=== PATIENT | female | born 1990 | race Caucasian/White ===

== ENCOUNTER 2017-02-08 15:57 | Observation (INO) | payer OTHER ==
[~2017-02-08] VITALS: Ht 162.6 cm; Wt 114.3 kg
[~2017-02-08 15:57] MED LIST: PREN1TAB58 PO
[2017-02-08 16:48] LABS: NEG OBC AMNIO NEG; POS OBC AMNIO POS
[2017-02-08 17:03] LABS: BILIRUBIN,URINE NEGATIVE (NEG); GLUCOSE,URINE NEGATIVE (NEG); NITRITE,URINE NEGATIVE (NEG); PROTEIN,URINE NEGATIVE (NEG-TRACE); UROBILINOGEN,URINE 0.2 mg/dL (0.2 mg/dL)
[2017-02-08 17:10] LABS: BARBITURATES NEG (NEG); BENZODIAZEPINES NEG (NEG); CANNABINOIDS POS (NEG); COCAINE NEG (NEG); METHADONE NEG (NEG); OPIATES NEG (NEG); PHENCYCLIDINE NEG (NEG)
[2017-02-08 17:18] LABS: BACTERIA,URINE MODERATE /HPF (0-FEW); SQUAMOUS EPITHELIAL CELL,UR MOD /LPF; WBC,URINE OCC /HPF (0-4)
[2017-02-08] MEDS ORDERED: IV RINGERS,LACTATED 1000ML 1,000 ML IV ONE (18:15)
[2017-02-08] MEDS ORDERED: hydrOXYzine PAMOATE 25 MG CAPSULE PO ONE (18:15)
[2017-02-08] MEDS ORDERED: PNV1TABL25 PO (18:33)
[2017-02-08 21:30] VITALS: BP 147/72
== END 2017-02-09 00:09 | disposition home or self-care (01) ==
LOC: 3 SO LND 15:57
PROVIDERS: ADMIT Specialist; ATTEND Specialist
DX: O42.92 Full-term premature rupture of membranes, unspecified as to length of time between rupture and onset of labor (principal); O26.893 Other specified pregnancy related conditions, third trimester; R10.2 Pelvic and perineal pain; Z3A.37 37 weeks gestation of pregnancy
CPT/HCPCS: 36415; 81001; 84112; 87086; 96360; 96361; G0378; G0379; G0481; Q0177; J7120

== ENCOUNTER 2017-02-12 13:26 | Observation (INO) | payer OTHER ==
[~2017-02-12 13:26] MED LIST changes: +PNV1TABL25 PO
[2017-02-12] MEDS ORDERED: IV RINGERS,LACTATED 1000ML 1,000 ML IV SCH (14:01)
[2017-02-12] MEDS ORDERED: ACETAMINOPHEN 325 MG TABLET. PO PRN (14:15)
[2017-02-12 14:17] LABS: NEG OBC AMNIO NEG; POS OBC AMNIO POS
[2017-02-12 14:24] LABS: BILIRUBIN,URINE NEGATIVE (NEG); GLUCOSE,URINE NEGATIVE (NEG); NITRITE,URINE NEGATIVE (NEG); PH,URINE 6.5; PROTEIN,URINE 30 mg/dL (NEG-TRACE); UROBILINOGEN,URINE 0.2 mg/dL (0.2 mg/dL)
[2017-02-12 14:30] LABS: BARBITURATES NEG (NEG); BENZODIAZEPINES NEG (NEG); CANNABINOIDS NEG (NEG); COCAINE NEG (NEG); METHADONE NEG (NEG); OPIATES NEG (NEG); PHENCYCLIDINE NEG (NEG)
[2017-02-12 14:41] LABS: BACTERIA,URINE MANY /HPF (0-FEW); SQUAMOUS EPITHELIAL CELL,UR MOD /LPF
== END 2017-02-12 16:00 | disposition home or self-care (01) ==
LOC: 3 SO LND 13:26
PROVIDERS: ADMIT Obstetrics & Gynecology; ATTEND Obstetrics & Gynecology
DX: O62.9 Abnormality of forces of labor, unspecified (principal); Z3A.38 38 weeks gestation of pregnancy
CPT/HCPCS: 36415; 81001; 84112; 87086; G0378; G0379; G0481

== ENCOUNTER 2017-02-18 07:54 | Inpatient (IN) | payer OTHER ==
[~2017-02-18] VITALS: Ht 162.6 cm; Wt 116.1 kg
[2017-02-18] MEDS ORDERED: fentaNYL PF VIAL 100 MCG/2 ML VIAL IV PRN (08:45)
[2017-02-18] MEDS ORDERED: 0.9 % SODIUM CHLORIDE 10 ML DISP.SYRIN. IV PRN ×2 (08:45→20:30)
[2017-02-18] MEDS ORDERED: OXYTOCIN 30 UNIT/500 ML PREMIX 500 ML IV PRN ×3 (08:45→20:30)
[2017-02-18] MEDS ORDERED: LIDOCAINE 1% PF 30 ML VIAL. INJ PRN (08:45)
[2017-02-18] MEDS ORDERED: IBUPROFEN 600 MG TABLET. PO PRN (08:45)
[2017-02-18] MEDS ORDERED: BUTORPHANOL 2 MG/ML VIAL. IV PRN ×2 (08:45)
[2017-02-18] MEDS ORDERED: IBUPROFEN 800 MG TABLET. PO PRN (09:00)
[2017-02-18] MEDS ORDERED: AMPICILLIN SODIUM 2 GM in IV NORMAL SALINE 100ML 100 ML IV ONE (09:00)
[2017-02-18] MEDS: IV RINGERS,LACTATED 1000ML 1,000 ML IV PRN ×2 (09:22→12:59)
[2017-02-18 09:41] LABS: BASO # 0.1 x10^3/uL (0.0-0.2); BASO % 1 % (0-3); EOS % 2 % (0-3); HEMATOCRIT 33.5 % (36.0-47.0); HEMOGLOBIN 11.5 g/dL (12.0-15.5); LYMPH # 2.5 x10^3/uL (1.0-4.8); LYMPH % 20 % (24-48); MEAN CORPUSCULAR HEMOGLOBIN 29 pg (25-35); MEAN CORPUSCULAR HGB CONC 34 g/dL (31-37); MEAN CORPUSCULAR VOLUME 83 fL (79-100); MONO % 8 % (0-9); NEUT % 69 % (31-73); PLATELET COUNT 230 x10^3/uL (140-400); RED BLOOD COUNT 4.04 x10^6/uL (3.50-5.40); RED CELL DISTRIBUTION WIDTH 13.8 % (11.5-14.5); WHITE BLOOD COUNT 12.2 x10^3/uL (4.0-11.0)
[2017-02-18] MEDS ORDERED: L&D EPIDURAL CASSETTE 100 ML EP ONE (12:18)
[2017-02-18] MEDS ORDERED: ROPIVacaine 0.2% IN 0.9%NACL PF 40 MG/20 ML DISP.SYRIN. ONE ×2 (12:18→12:30)
[2017-02-18] MEDS ORDERED: L&D EPIDURAL CASSETTE 100 ML PUMP.RESVR. EP ONE (12:30)
[2017-02-18] MEDS ORDERED: OXYTOCIN in NORMAL SALINE PREMIX 30 UNIT/500 ML BAG. IV ONE (12:30)
[2017-02-18] MEDS ORDERED: ROPIVacaine 0.2% PF 10 ML VIAL. EPI ONE (13:15)
[2017-02-18] MEDS ORDERED: NALOXONE 0.4 MG/ML VIAL. IV PRN (13:15)
[2017-02-18] MEDS ORDERED: fentaNYL PF VIAL 100 MCG/2 ML VIAL EPI ONE (13:15)
[2017-02-18] MEDS ORDERED: L&D EPIDURAL CASSETTE 100 ML EP PRN (13:15)
[2017-02-18] MEDS ORDERED: ONDANSETRON PF 4 MG/2 ML VIAL. IV PRN (13:15)
[2017-02-18] MEDS ORDERED: ePHEDrine PF IN SALINE 50 MG/5 ML DISP.SYRIN IV PRN (13:15)
[2017-02-18] MEDS: AMPICILLIN SODIUM 1 GM in IV NORMAL SALINE 50ML 50 ML IV SCH ×3 (13:22→20:16)
[2017-02-18] MEDS ORDERED: PHENYLEPH/MINERAL OIL/PETROLAT RECTAL OINTMENT 28GM TUBE. RC PRN (20:30)
[2017-02-18] MEDS ORDERED: ZOLPIDEM 5 MG TABLET. PO PRN (20:30)
[2017-02-18] MEDS ORDERED: MAGNESIUM HYDROXIDE 2,400 MG/30 ML ORAL.SUSP. PO PRN (20:30)
[2017-02-18] MEDS ORDERED: HYDROCORTISONE 1% TOPICAL OINTMENT 30GM TUBE. TP PRN (20:30)
[2017-02-18] MEDS ORDERED: ACETAMINOPHEN 325 MG TABLET. PO PRN (20:30)
[2017-02-18] MEDS ORDERED: BENZOCAINE 20% TOPICAL AEROSOL SPRAY 57GM CAN. TP PRN (20:30)
[2017-02-18] MEDS ORDERED: diphenhydrAMINE HCL 25 MG CAPSULE PO PRN (20:30)
[2017-02-18] MEDS ORDERED: MAG HYDROX/ALUMINUM HYD/SIMETH 30 ML ORAL.SUSP PO PRN (20:30)
[2017-02-18] MEDS ORDERED: SIMETHICONE 80 MG TAB.CHEW PO PRN (20:30)
--- NOTE | 2017-02-18 20:41 | PDOC ---
VAGINAL DELIVERY DATE DATE: 02/18/17 TIME: 20:39 : 1 EDC: Feb 23, 2017 VAGINAL DELIVERY: VTX VACCUM ASSISTED: No PLACENTA: Spontaneous SEX: Male WEIGHT 8/2 Nuchal Cord: Yes, Times 1, Loose Amniotic Fluid: Clear PAIN: Epidural EPISIOTOMY: Yes EBL 400cc COMPLICATIONS None CONDITION Stable Signs of Intrauterine Infectio: None Shoulder Dystocia: No DIAGNOSIS TIUP del Problems: CARYL VILLAREAL MD Feb 18, 2017 20:41
[2017-02-18] MEDS: IBUPROFEN 800 MG TABLET. PO SCH (21:56)
[2017-02-18 23:05] VITALS: BP 130/77
[2017-02-18 23:50] VITALS: BP 132/72
[2017-02-19] MEDS: HYDROcodone/APAP 5/325MG 1 TAB TABLET PO PRN ×6 (02:46→22:25)
[2017-02-19 04:25] VITALS: BP 112/55
[2017-02-19 07:30] LABS: RPR REFLEX Non Reactive (Non Reactive)
--- NOTE | 2017-02-19 07:55 | PDOC ---
Provider Note Provider Note Doing well VSS uterus NTTP FU Vital Sign - Last 24 Hours 02/18/17 02/18/17 02/18/17 02/19/17 13:00 23:05 23:50 02:46 Temp 98.1 97.9 98.1 97.9 Pulse 105 97 Resp 20 20 20 18 B/P (MAP) 130/77 (94) 132/72 (92) Pulse Ox 96 95 O2 Delivery Room Air 02/19/17 04:25 Temp 97.7 97.7 Pulse 84 Resp 20 B/P (MAP) 112/55 (74) Pulse Ox 97 in AM CARYL VILLAREAL MD Feb 19, 2017 07:55
[2017-02-19] MEDS: IBUPROFEN 800 MG TABLET. PO SCH ×2 (08:20→17:49)
[2017-02-19] MEDS: FERROUS SULFATE 325 MG TABLET. PO SCH ×2 (08:20→17:48)
[2017-02-19 10:40] VITALS: BP 135/85
[2017-02-19 14:11] VITALS: BP 124/63
[2017-02-19 17:50] VITALS: BP 141/88
[2017-02-19 22:55] VITALS: BP 140/79
[2017-02-20] MEDS: HYDROcodone/APAP 5/325MG 1 TAB TABLET PO PRN ×3 (03:39→09:59)
[2017-02-20] MEDS: IBUPROFEN 800 MG TABLET. PO SCH ×2 (03:39→14:16)
[2017-02-20 05:36] VITALS: BP 116/65
[2017-02-20] MEDS: FERROUS SULFATE 325 MG TABLET. PO SCH (08:37)
[2017-02-20 13:05] VITALS: BP 121/84
--- NOTE | 2017-02-20 14:20 | PDOC1 ---
OB - History Hx of Present Care: Good Care Ultrasounds: Normal mid trimester US Obstetrical Complications: None Medical Complications: None Past Family/Social History * Past Medical, Surgical, Family and Obstetric Histories reviewed from chart. Blood Type: O+ Rubella: Immune RPR/VDRL: Negative GBS Status: Negative HBsAG: Negative OB - Chief Complaint & HPI Date of Admission: Date of Admission: Feb 18, 2017 at 07:54 Chief Complaint/History : 1 Para: 0 EDC: Feb 23, 2017 Reason for admission: induction of labor Indication for induction: other Admission Nurse Assessment Rev: Yes Problems: OB - Admission Exam Physical Exam Vitals: VS - Last 72 Hours, by Label Date Time Temp Pulse Resp B/P (MAP) Pulse Ox O2 Delivery O2 Flow Rate FiO2 02/20/17 13:05 97.9 92 18 121/84 (96) 97.9 02/20/17 05:36 97.9 80 20 116/65 (82) 97.9 02/19/17 22:55 97.9 87 20 140/79 (99) 97 Room Air 97.9 02/19/17 22:25 97 Room Air 02/19/17 22:24 20 02/19/17 18:45 20 Room Air 02/19/17 17:50 97.3 99 20 141/88 (105) 97 97.3 02/19/17 17:49 20 Room Air 02/19/17 14:11 97.5 93 20 124/63 (83) 99 97.5 02/19/17 14:06 20 02/19/17 10:40 97.4 100 20 135/85 (102) 97 97.4 02/19/17 08:20 20 Room Air 02/19/17 08:10 Room Air 02/19/17 04:25 97.7 84 20 112/55 (74) 97 97.7 02/19/17 02:46 18 02/18/17 23:50 97.9 97 20 132/72 (92) 95 97.9 02/18/17 23:05 98.1 105 20 130/77 (94) 96 98.1 02/18/17 13:00 20 Room Air HEENT: Normal, Nasal Mucosa Normal, Oropharynx Normal, Moist Membranes, Fontanelles Normal Heart: Regular Rate Lungs: Clear, Equal Abdomen: Gravid Extremities: Normal Pulses, No tenderness or swelling Reflexes: Normal Cervical Dilatation: 3cm Effacement: 50% Station: Ballotable Amniotic Fluid: Clear Heart Rate: Normal Accelerations: Accelerations Present Decelerations: No decelerations Intensity: Mild Assessment/Plan Assessment/Plan TIUP Induction ACSVD Problems: CARYL VILLAREAL MD Feb 20, 2017 14:20
--- NOTE | 2017-02-20 14:21 | PDOC3 ---
OB DISCHARGE SUMMARY DATE OF ADMISSION: 02/18/17 DATE OF DISCHARGE: 02/20/17 REASON FOR ADMISSION: Onset of labor PROCEDURES: Ultrasound INTRAPARTUM PROCEDURES: Spontanous Vag Deliv PROCEDURES: None OPERATIONS: None DISCHARGE DIAGNOSIS: Term Delivered DISCHARGE INFORMATION: Activity, Diet HOSPITAL COURSE Unremarkable CONDITION AT DISCHARGE Stable CARYL VILLAREAL MD Feb 20, 2017 14:21
[2017-02-20] MEDS ORDERED: NAPR500T3 PO (14:24)
[2017-02-20] MEDS ORDERED: HYDR-971 PO (14:24)
== END 2017-02-20 20:00 | disposition home or self-care (01) | DRG 775 ==
LOC: 3 SO LND 07:54 → 3 NORTH 23:23
PROVIDERS: ADMIT Specialist; ATTEND Specialist
PROC: 10E0XZZ Delivery of Products of Conception, External Approach (ICD-10-PCS; principal; 2017-02-18)
PROC: 3E0S3CZ (ICD-10-PCS; 2017-02-18)
PROC: 00HU33Z Insertion of Infusion Device into Spinal Canal, Percutaneous Approach (ICD-10-PCS; 2017-02-18)
PROC: 0W8NXZZ Division of Female Perineum, External Approach (ICD-10-PCS; 2017-02-18)
DX: O69.81X0 Labor and delivery complicated by cord around neck, without compression, not applicable or unspecified (principal); Z37.0 Single live birth; Z3A.39 39 weeks gestation of pregnancy
CPT/HCPCS: 36415; 85014; 85027; 86593; 86850; 86900; 86901; C1887; J0290; J2590; J2795; J3010; J7120